=== PATIENT | male | born 1950 | race Caucasian/White ===

== ENCOUNTER 2019-06-25 10:03 | Outpatient (CLI) | payer MEDICARE, OTHER, SELFPAY ==
--- NOTE | 2019-06-25 10:16 | MM_ITS ---
WS: [id number] DIAGNOSTIC BILATERAL DIGITAL MAMMOGRAM WITH CAD RIGHT breast ultrasound, limited HISTORY: RT BREAST Pain; mastodynia COMPARISON: None available. TECHNIQUE: Bilateral craniocaudad, mediolateral oblique, and mediolateral views are submitted. Spot c ompression RIGHT MLO. Computer aided detection utilized. Breast composition: The breasts are almost entirely fatty. Prior markers are placed in the area of pa in. One marker is placed just lateral to the nipple an additional marker is placed towards the 10:00 axis. At the 10:00 axis is a very superficial. Nodule measuring 10 mm. No abnormality at the nipple. Ultrasound to follow. RIGHT breast ultrasound, limited. There is a very vague, nonspecific hypoechoic nodule measuring 9 x 7 mm near the areola. This is near ly isoechoic to the remaining breast parenchyma with no shadowing. There is a very vague isoechoic a hector superficially measuring 9 mm which may represent the same thing seen on mammography but cannot co nfirm. MM/[place] [id number] IMPRESSION: BI-RADS: 3-Probably Benign FOLLOW UP: 3 Month Follow-up There are 2 very vague areas of abnormality within the RIGHT breast. As these a re very poorly defined and nearly isodense with the remaining breast parenchyma consider follow-up 3 months. RIGHT mammogram and ultrasound recommended. If th cullen areas become more painful or enlarged significantly before 3 months conside r more urgent evaluation.
== END 2019-06-25 10:04 | disposition home or self-care (01) ==
LOC: RADSHAW 10:08
PROVIDERS: Family Provider Internal Medicine; PCP Family Medicine; Visit Provider Nurse Practitioner Family
DX: N64.4 Mastodynia (principal); N63.41 Unspecified lump in right breast, subareolar
CPT/HCPCS: 76642; 77065

== ENCOUNTER 2019-09-16 20:00 | Outpatient (CLI) | payer OTHER, MEDICARE, SELFPAY | END 2019-09-17 06:00 | disposition home or self-care (01) | LOC: SLEEP 09-26 12:23 | PROVIDERS: Family Provider Internal Medicine; PCP Family Medicine; Visit Provider Internal Medicine | DX: G47.33 Obstructive sleep apnea (adult) (pediatric) | CPT/HCPCS: 95811 ==

== ENCOUNTER 2019-10-23 10:08 | Outpatient (CLI) | payer MEDICARE, OTHER, SELFPAY ==
--- NOTE | 2019-10-23 10:17 | MM_ITS ---
WS: [id number] DIAGNOSTIC RIGHT DIGITAL MAMMOGRAM WITH CAD RIGHT breast ultrasound, limited HISTORY: ABNORMAL/INCONCLUSIVE FINDINGS ON diagnostic IMAGING OF BREAST 6 month follow-up. COMPARISON: 06/25/2019 Technique: CC, MLO and ML views. Spot compression RIGHT MLO and cc. Breast composition: The breasts are almost entirely fatty. Triangular markers are placed over the la teral RIGHT breast in the area of concern. There is no abnormality noted at the site of the more ante rior marker which is close to the nipple. There is a hypodense mass which is slightly more anterior t tinsley the palpable marker which has been placed. This nodule measures 10 mm and unchanged in appearanc e. Both of these areas will be evaluated by ultrasound. There are no new lesions. RIGHT breast ultrasound. At 9:00 1 cm from the nipple no abnormality is identified. At 10:00, 4 cm from the nipple is a hyperechoic mass measuring 11 x 6 x 7 mm. Similar in appearance t o the prior study. Benign in appearance. MM/[place] [id number] IMPRESSION: BI-RADS: 2-Benign FOLLOW UP: See Report The palpable nodules in the lateral RIGHT breast have not increased in size and appear benign by imaging. No additional imaging workup is necessary. Clinicall y if these are concerning for the increase in size surgical removal should be c onsidered.
--- NOTE | 2019-10-23 11:18 | US_ITS ---
WS: [id number] DIAGNOSTIC RIGHT DIGITAL MAMMOGRAM WITH CAD RIGHT breast ultrasound, limited HISTORY: ABNORMAL/INCONCLUSIVE FINDINGS ON diagnostic IMAGING OF BREAST 6 month follow-up. COMPARISON: 06/25/2019 Technique: CC, MLO and ML views. Spot compression RIGHT MLO and cc. Breast composition: The breasts are almost entirely fatty. Triangular markers are placed over the la teral RIGHT breast in the area of concern. There is no abnormality noted at the site of the more ante rior marker which is close to the nipple. There is a hypodense mass which is slightly more anterior t tinsley the palpable marker which has been placed. This nodule measures 10 mm and unchanged in appearanc e. Both of these areas will be evaluated by ultrasound. There are no new lesions. RIGHT breast ultrasound. At 9:00 1 cm from the nipple no abnormality is identified. At 10:00, 4 cm from the nipple is a hyperechoic mass measuring 11 x 6 x 7 mm. Similar in appearance t o the prior study. Benign in appearance. US/US breast RT limited* [id number] IMPRESSION: BI-RADS: 2-Benign FOLLOW UP: See Report The palpable nodules in the lateral RIGHT breast have not increased in size and appear benign by imaging. No additional imaging workup is necessary. Clinicall y if these are concerning for the increase in size surgical removal should be c onsidered.
== END 2019-10-23 10:09 | disposition home or self-care (01) ==
LOC: RADSHAW 10:16
PROVIDERS: PCP Family Medicine; Visit Provider Nurse Practitioner Family
DX: R92.8 Other abnormal and inconclusive findings on diagnostic imaging of breast (principal); N63.10 Unspecified lump in the right breast, unspecified quadrant
CPT/HCPCS: 76642; 77065

== ENCOUNTER → 2020-01-22 13:00 | Outpatient (BNVA) | payer MEDICARE, OTHER, SELFPAY | PROVIDERS: PCP Family Medicine; Visit Provider Urology | DX: N40.0 Benign prostatic hyperplasia without lower urinary tract symptoms (principal) | CPT/HCPCS: 81001 ==

== ENCOUNTER 2021-02-08 10:07 | Outpatient (CLI) | payer OTHER, SELFPAY ==
--- NOTE | 2021-02-08 10:42 | XR_ITS ---
WS: [id number] XR chest 2V* [id number] REASON FOR EXAM: SHORTNESS OF BREATH/FATIGUE FINDINGS: Mild tortuosity of the thoracic aorta. Normal heart size. Calcified granulomatous disease in both hemithoraces. No active pulmonary parenchymal or pleural dise ase. Degenerative spondylosis in the mid and lower thoracic spine with moderate disc space narrowing and o steophyte formation. Old healed right fourth and fifth rib fractures laterally. XR/XR chest 2V* [id number] IMPRESSION: No acute chest abnormality.
== END 2021-02-08 10:08 | disposition home or self-care (01) ==
PROVIDERS: PCP Family Medicine; Visit Provider Nurse Practitioner Family
DX: R06.02 Shortness of breath (principal); R53.83 Other fatigue
CPT/HCPCS: 71046

== ENCOUNTER 2021-03-11 06:12 | Outpatient (CLI) | payer MEDICARE, SELFPAY ==
--- NOTE | 2021-03-11 06:23 | CT_ITS ---
WS: [id number] CT CHEST TECHNIQUE: Noncontrast CT of the chest with coronal and sagittal reformatted images. CLINICAL INFORMATION: SOB COMPARISON: None. DLP: 1387.[address] scans at [facility] use at least one of these dose optimization techniques: automated e xposure control; mA and/or kV adjustment per patient size (includes targeted exams where dose is matc hed to clinical indication); or iterative reconstruction. FINDINGS: Mild chronic emphysematous changes. No acute pulmonary infiltrates. Slight bibasilar atelectasis. No focal consolidation or pleural fluid. No mediastinal or hilar lymphadenopathy. No axillary lymphadenopathy. 10 mm low-attenuation right thy roid nodule. Vascular calcification. Coronary calcification. Partially visualized adrenal glands appear normal. Hypertrophic changes thoracic spine. Mild thoracic kyphosis. Mild chronic appearing anterior wedging in the upper thoracic spine. CT/CT chest wo con [id number] IMPRESSION: 1. Mild chronic emphysematous changes. No acute pulmonary infiltrates. 2. Slight bibasilar atelectasis. 3. No mediastinal or hilar lymphadenopathy. 4. Mild vascular and coronary calcification. 5. 10 mm low-attenuation right thyroid nodule.
--- NOTE | 2021-03-11 06:53 | USCV_ITS ---
New Dela Cruz Age: 70 Gender: M : 1950 Exam Date: 03/11/2021 06:57 Ordering Phys: Maia Pereira NP Technologist: MINGO [place] [facility] [place]: SHORTNESS OF BREATH BP: 123 / 76 HR: 54 Rhythm: Sinus Technical Quality: Technically difficult study MEASUREMENTS (Male / Female) Normal Values 2D ECHO LV Diastolic Diameter PLAX 3.9 cm 4.2 - 5.9 / 3.9 - 5.3 cm LV Systolic Diameter PLAX 3.4 cm IVS Diastolic Thickness 1.5 cm 0.6 - 1.0 / 0.6 - 0.9 cm IVS Systolic Thickness 1.4 cm LVPW Diastolic Thickness 1.5 cm 0.6 - 1.0 / 0.6 - 0.9 cm LVPW Systolic Thickness 1.7 cm RV Chamber Size 2.9 cm LVOT Diameter 2.0 cm LV Ejection Fraction 2D Teich 4.2 % LV Ejection Fraction MOD 2C 55.7 % LV Ejection Fraction 2C AL 55.2 % LA Diameter 3.3 cm LA Width 3.3 cm LA Height 3.9 cm RA Width 3.2 cm RA Height 4.1 cm Aorta at Sinotubular Diameter 2.8 cm DOPPLER MV Area PHT 3.7 cm squared Mitral E to A Ratio 0.8 MV E' Velocity 33.5 cm/s Mitral E to MV E' Ratio 7.4 Mitral E to LV E' Lateral Ratio 7.0 Mitral E to LV E' Septal Ratio 7.9 TR Peak Velocity 283.0 cm/s TR Peak Gradient 32.0 mmHg TV Peak E Velocity 47.0 cm/s Right Atrial Pressure 3.0 mmHg Pulmonary Artery Systolic Pressu 35.0 mmHg PV Peak Velocity 74.0 cm/s RV Acceleration Time 0.1 s RV Ejection Time 0.4 s RV AcT/ET 0.3 FINDINGS Left Ventricle Normal left ventricular size. LV systolic function is normal with EF of 55-60%. No regional wall motion abnormalities. Grade 1 diastolic dysfunction Right Ventricle The right ventricle is normal in size and function. Right Atrium The right atrium is normal in size. Left Atrium The left atrium is normal in size. Mitral Valve Structurally normal mitral valve without significant stenosis or prolapse. There is trace mitral regurgitation. Aortic Valve Structurally normal aortic valve without significant sclerosis or stenosis. There is no aortic regurgitation. Tricuspid Valve Structurally normal tricuspid valve without significant stenosis or regurgitation. Insufficient TR jet to calculate RVSP Pulmonic Valve Structurally normal pulmonic valve without significant stenosis. There is no pulmonic regurgitation. Pericardium Normal pericardium without effusion. Aorta Normal ascending aorta dimension. CONCLUSIONS LV systolic function is normal with EF of 55-60% Grade 1 diastolic dysfunction Trace mitral regurgitation No comparison studies are available Storm Eddy MD (Electronically Signed) Final Date: 11 March 2021 14:47 S
== END 2021-03-11 06:13 | disposition home or self-care (01) ==
LOC: RAD 06:16
PROVIDERS: PCP Family Medicine; Visit Provider Nurse Practitioner Family
DX: R53.83 Other fatigue (principal); R06.02 Shortness of breath; I34.0 Nonrheumatic mitral (valve) insufficiency
CPT/HCPCS: 71250; 93306

== ENCOUNTER 2021-06-01 10:07 | Outpatient (CLI) | payer OTHER, SELFPAY ==
[2021-06-01 10:34] VITALS: BMI 33.7
--- NOTE | 2021-06-01 10:35 | ECG_ITS ---
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 Interpretive Statements NAME OF STUDY: EXERCISE SESTAMIBI STRESS TEST INDICATION: Dyspnea on Exertion Baseline blood pressure of 175/103 mm Hg, heart rate 64 beats per minute and oxygen saturation of 97%. EKG showed normal sinus rhythm, normal axis with normal ST-Ts. The patient exercised for 5 minutes 30 seconds on a standard [place] protocol. Patient attained a maximum heart rate of 139 beats per minute(93% of the maximum predicted heart rate) with a blood pressure at the peak exercise of 149/90 mm Hg and oxygen saturation 97%. The EKG at the peak exercise revealed sinus tachycardia with no significant ST-T wave changes. Patient did not have any chest pain or any significant arrhythmis with the exercise. Patient developed intraprocedural shortness of breath that resolved by discharge. During the recovery phase, there were no new changes. Blood pressure at the end of the recovery phase was 158/87 mm Hg with a heart rate of 87 beats per minute and oxygen saturation 97%. CONCLUSION: 1. Normal EKG response to treadmill exercise. 2. No exercise-induced chest pain or cardiac arrhythmia. 3. Patient exercised for 5 minutes 30 seconds. Good exercise tolerance for age, attained a maximum of 7 METs. Maximum VO2 of 24.5 mL/kg/min. 4. Baseline hypertension with (?) decreased blood pressure with exercise. 5. Perfusion scan will be documented separately. Electronically Signed On 06-02-2021 13:29:42 HOSPITAL ORDERLY by Ashley Tatum M.D. [id number]
--- NOTE | 2021-06-01 10:35 | NMCV_ITS ---
NM katlyn perf SPECT r/s* [id number] New Dela Cruz Age: 70 Gender: M : 1950 Exam Date: 06/01/2021 11:27 Ordering Phys: Ashley Tatum MD ([email or web address]) Technologist: JANET Powell Exam Location: [facility] Indications: PTSD STRESS TEST Please see separate stress test report in [facility] for full findings IMAGE PROTOCOL Rest/Stress 1 Exercise Day Radiopharmaceutical Dose (mCi) Administration Site Administered by Rest: Tc-99m 10.9 IV JANET Baez Sestamibi Stress:Tc-99m 32.7 IV JANET Powell Sestamihalima Rest: 01-Jun-2021 60 Discovery 630 Stress: 01-Jun-2021 30 Discovery 630 Radiopharmaceutical was injected at 85 % maximum heart rate. Images obtained in supine and prone position. SPECT RESULTS Technical Quality: Excellent Raw Data Analysis: Normal Image Corrections: No attenuation or motion correction applied Summed Stress Score: 1 Summed Rest Score: 0 Summed Difference Score: 1 PERFUSION FINDINGS Small sized perfusion abnormality of mild severity of apical lateral wall on supine stress images. FUNCTIONAL RESULTS (calculated via Gated SPECT) Stress Image LV EF (%): 68 Stress EDV (mL):93 TID: 0.71 Stress ESV (mL):30 FUNCTIONAL FINDINGS: The left ventricle is normal in size. Transient Ischemia Dilatation of 0.71. There is normal left ventricular systolic function. The left ventricular ejection fraction is normal with a value of 68%. There is normal left ventricular wall thickening. Normal end diastolic and end systolic volumes. IMPRESSIONS 1. Small sized perfusion abnormality of mild severity of apical lateral wall on stress images. 2. This likely represents attenuation artifact. However, small area of ischemia in circumflex artery territory cannot be completely ruled out. 3. Overall left ventricular systolic function is normal without regional wall motion abnormalities. LVEF=68% 4. EKG portion of the study will be reported separately. 5. Scan indicates low risk for cardiac events. Ashley Tatum MD (Electronically Signed) Final Date: 05 June 2021 13:28 S
[2021-06-01 12:40] VITALS: BP 170/90; PULSE 83
== END 2021-06-01 10:08 | disposition home or self-care (01) ==
LOC: RAD 10:12 → CDL 10:13
PROVIDERS: PCP Nurse Practitioner Family; Visit Provider Internal Medicine Cardiovascular Disease
DX: R06.09 Other forms of dyspnea (principal); I10 Essential (primary) hypertension
CPT/HCPCS: 78452; 93017; A9500

== ENCOUNTER 2021-06-09 07:16 | Outpatient (CLI) | payer OTHER, SELFPAY ==
--- NOTE | 2021-06-09 07:27 | USCV_ITS ---
New Dela Cruz Age: 70 Gender: M : 1950 Exam Date: 06/09/2021 08:31 Ordering Phys: Magaly Pichardo MD Technologist: JESSICA Exam Location: [facility] [place] Indication: dizziness Risk Factors: Previous Vascular Surgery: Right Brachial BP: / Left Brachial BP: / Right Left Velocity (cm/s) Spectral Plaque Velocity (cm/s) Spectral Plaque Syst/Diast Broadening Syst/Diast Broadening 91.70/ 19.40 Prox CCA 84.70 / 14.20 87.80/ 21.80 Mid CCA 115.70/ 27.60 80.80/ 24.10 Distal CCA 103.90/ 34.20 82.40/ 28.70 Prox ICA 75.90 / 23.00 106.00/33.50 Mid ICA 89.20 / 30.70 71.30/ 28.40 Distal ICA 87.40 / 31.60 97.10 ECA 140.70 1.21 ICA/CCA 0.77 Antegrade Vertebral Antegrade 42.20/ 15.00 cm/s 47.70/ 15.70 cm/s Tri Subclavian Tri 70.30 70.30 CONCLUSIONS Right ICA stenosis <50%. Mild atheromatous plaque right carotid bulb/ICA. Left ICA stenosis <50%. Mild atheromatous plaque left carotid bulb/ICA. Normal antegrade Doppler flow noted in the right vertebral artery. Normal antegrade Doppler flow noted in the left vertebral artery. Jorge Charles MD (Electronically Signed) Final Date: 10 June 2021 09:51 S
--- NOTE | 2021-06-09 07:27 | US_ITS ---
WS: [id number] THYROID ULTRASOUND (TI-RADS CRITERIA) History: Thyroid nodule. Technique: Ultrasound examination of the thyroid and adjacent soft tissues is performed. FINDINGS: Right lobe: 4.9 cm x 1.6 cm x 1.9 cm. Volume: 7.7 cm3. Normal size thyroid. Mild heterogeneity. Lymph nodes: None. There is a very hypoechoic nodule medial to the RIGHT submandibular gland measurin g 1.7 x 1.2 x 1.5 cm. No increased vascularity. This may be a cyst. There is some through transmissio n. There are also low level echoes throughout. This is not part of the thyroid. NODULE: 1 Size: 1.3 x 0.9 x 1.5 cm Location: Mid gland Composition: Solid/almost completely solid (2) Echogenicity: Hyperechoic (1) Shape: Not taller than wide (0) Margins: Smooth (0) Echogenic foci: None (0) ACR TI-RADS total points: 3 Nodule in the mid gland as described above is very hypervascular. There is an additional smaller, sim ilar nodule in the superior pole of the RIGHT thyroid with a maximum diameter of 0.6 cm. Left lobe: 4.0 cm x 1.4 cm x 1.1 cm. Volume: 3.2 cm3. Normal size gland. There is a coarse calcification in the mid gland measuring 0.3 x 0.1 x 0.3 cm. Lymph nodes: No enlarged or suspicious lymph nodes. Isthmus: 0.5 cm. US/US thyroid [id number] Impression: TR3 Recommendation:Follow-up thyroid ultrasound in one, 3 and 5 years to document l baylee-term stability of the indeterminate nodule in the RIGHT thyroid. Very hypoechoic nodule lateral to the RIGHT submandibular gland may be an abnor mal lymph node. Recommend follow-up neck CT with IV contrast for further evalua tion.
== END 2021-06-09 07:17 | disposition home or self-care (01) ==
LOC: RAD 07:19
PROVIDERS: PCP Nurse Practitioner Family; Visit Provider Family Medicine
DX: R42 Dizziness and giddiness (principal); E04.1 Nontoxic single thyroid nodule; I65.23 Occlusion and stenosis of bilateral carotid arteries
CPT/HCPCS: 76536; 93880

== ENCOUNTER → 2021-07-15 10:40 | Outpatient (BNVA) | payer OTHER, SELFPAY | PROVIDERS: PCP Nurse Practitioner Family; Visit Provider Internal Medicine Cardiovascular Disease | DX: R06.00 Dyspnea, unspecified (principal); I10 Essential (primary) hypertension; E78.5 Hyperlipidemia, unspecified; G47.30 Sleep apnea, unspecified; N52.9 Male erectile dysfunction, unspecified | CPT/HCPCS: 99214 ==

== ENCOUNTER → 2021-07-22 10:33 | Outpatient (BNVA) | payer OTHER, SELFPAY | PROVIDERS: PCP Nurse Practitioner Family; Visit Provider Urology | DX: N40.1 Benign prostatic hyperplasia with lower urinary tract symptoms (principal); N13.8 Other obstructive and reflux uropathy; Z12.5 Encounter for screening for malignant neoplasm of prostate; Z80.42 Family history of malignant neoplasm of prostate; N52.9 Male erectile dysfunction, unspecified | CPT/HCPCS: 81003; G0103 ==

== ENCOUNTER 2021-07-26 10:21 | Outpatient (CLI) | payer OTHER, SELFPAY ==
--- NOTE | 2021-07-26 10:46 | CT_ITS ---
WS: [id number] CT NECK TECHNIQUE: Contrast-enhanced CT of the neck with coronal and sagittal reformatted images. CLINICAL INFORMATION: FOLLOW UP TO ABNORMAL US COMPARISON: Ultrasound June 09, 2021 DLP: 461.[address] scans at [facility] use at least one of these dose optimization techniques: automated e xposure control; mA and/or kV adjustment per patient size (includes targeted exams where dose is matc hed to clinical indication); or iterative reconstruction. FINDINGS: Submandibular glands are normal in appearance. Parotid glands are normal in appearance. There is a sm all hypoechoic peripherally enhancing lesion along the undersurface RIGHT hyoid bone and anterior str ap muscles corresponding to the ultrasound findings compatible with a thyroglossal duct cyst measurin g 1.0 x 2.3 x 1.3 cm AP by transverse by craniocaudal. This is just anterior to the RIGHT thyroid car tilage. Normal parapharyngeal fat. Normal posterior nasopharynx. Mucosal thickening with secretions in the ma xillary sinuses compatible with sinusitis. Small RIGHT thyroid nodule better seen on the recent ultra sound. No evidence of supraglottic or glottic mass. Normal subglottic airway. No cervical lymphadenopathy. L elijah apices are well aerated. Moderate spondylitic changes cervical spine. CT/CT neck w con* [id number] IMPRESSION: 1. 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 RIGHT greater than LEFT maxillary sinusitis. 3. No other acute findings.
[2021-07-26 11:37] LABS: Blood Urea Nitrogen 23 mg/dL (8-23)
== END 2021-07-26 10:22 | disposition home or self-care (01) ==
LOC: RAD 10:22
PROVIDERS: PCP Nurse Practitioner Family; Visit Provider Family Medicine
DX: R93.0 Abnormal findings on diagnostic imaging of skull and head, not elsewhere classified (principal); J32.0 Chronic maxillary sinusitis
CPT/HCPCS: 70491; 82565; 84520

== ENCOUNTER → 2021-09-13 10:27 | Outpatient (BNVA) | payer OTHER, SELFPAY | PROVIDERS: PCP Nurse Practitioner Family; Visit Provider Otolaryngology | DX: J30.0 Vasomotor rhinitis (principal); Q89.2 Congenital malformations of other endocrine glands | CPT/HCPCS: 99204 ==

== ENCOUNTER → 2021-10-15 09:10 | Outpatient (BNVA) | payer OTHER, SELFPAY | PROVIDERS: PCP Nurse Practitioner Family; Visit Provider Otolaryngology | DX: J30.0 Vasomotor rhinitis (principal) | CPT/HCPCS: 99213 ==

== ENCOUNTER 2022-05-25 08:56 | Outpatient (CLI) | payer OTHER, SELFPAY ==
--- NOTE | 2022-05-25 | USCV_ITS ---
New Dela Cruz Age: 71 Gender: M : 1950 Exam Date: 05/25/2022 09:20 Ordering Phys: Magaly Pichardo MD Technologist: MARY Exam [place] [facility] [place] Indication: AAA SCREENING HISTORY: Diameter (cm) AP x Transverse x Length Velocity (cm/s) Waveform Prox Aorta: 2.21 x 2.38 x 90.90 Triphasic Mid Aorta: 2.07 x 1.96 x 104.10 Triphasic Distal Aorta: 1.95 x 1.61 x 72.70 Triphasic Right Iliac Prox: 1.16 x 1.12 x 138.00 Triphasic Left Iliac Prox: 1.27 x 0.97 x 96.70 Triphasic Stent Prox Landing x x Aneurysmal Sac Max x x Lt Lat Sac Dim Rt Lat Sac Dim Stent Dist Landing x x Right Iliac Stent x x Left Iliac Stent x x Right Renal Art Left Renal Art FINDINGS: CONCLUSIONS No evidence of abdominal aortic or bilateral iliac aneurysm. Jorge Charles MD (Electronically Signed) Final Date: 25 May 2022 10:43 S
--- NOTE | 2022-05-25 | US_ITS ---
WS: [id number] ULTRASOUND THYROID TECHNIQUE: Ultrasound of the thyroid. CLINICAL INFORMATION: NODULES COMPARISON: 06/09/21 FINDINGS: NODULE: 1 Size: 1.2 x 0.9 x 1.5 cm Location: Mid RIGHT thyroid gland Composition: Solid/almost completely solid (2) Echogenicity: Hyperechoic (1) Shape: Not taller than wide (0) Margins: Smooth (0) Echogenic foci: None (0) ACR TI-RADS total points: 3 Right thyroid lobe: 4.8 cm x 1.5 cm x 1.8 cm Stable solid hyperechoic well-circumscribed nodule in the mid RIGHT thyroid. Associated increased vas cularity is stable. No other visualized nodules today. Left thyroid lobe: 3.9 cm x 1.3 cm x 1.2 cm. Stable coarse calcification in the mid thyroid measuring 3 mm. Isthmus: 0.3 mm. Cervical lymphadenopathy: None. US/US thyroid [id number] IMPRESSION: TR3 Recommendation: Follow-up thyroid ultrasound in one, 3 and 5 years to document long-term stabil ity of the indeterminate nodule in the RIGHT thyroid. Next scheduled interval f ollow-up is 3 years.
== END 2022-05-25 08:57 | disposition home or self-care (01) ==
LOC: RAD 08:57
PROVIDERS: PCP Nurse Practitioner Family; Visit Provider Family Medicine
DX: Z13.6 Encounter for screening for cardiovascular disorders (principal); E04.2 Nontoxic multinodular goiter
CPT/HCPCS: 76536; 76706; 99214

== ENCOUNTER → 2022-11-09 08:48 | Outpatient (BNVA) | payer OTHER, SELFPAY | PROVIDERS: PCP Nurse Practitioner Family; Visit Provider Nurse Practitioner Family | DX: L57.0 Actinic keratosis (principal); L30.0 Nummular dermatitis; L57.8 Other skin changes due to chronic exposure to nonionizing radiation; D69.2 Other nonthrombocytopenic purpura; L81.4 Other melanin hyperpigmentation; D22.5 Melanocytic nevi of trunk; L85.3 Xerosis cutis; S60.041A Contusion of right ring finger without damage to nail, initial encounter; S60.042A Contusion of left ring finger without damage to nail, initial encounter; X58.XXXA Exposure to other specified factors, initial encounter; Z71.89 Other specified counseling | CPT/HCPCS: 17004; 99213 ==

== ENCOUNTER → 2023-02-09 08:16 | Outpatient (BNVA) | payer OTHER, SELFPAY | PROVIDERS: PCP Nurse Practitioner Family; Visit Provider Nurse Practitioner Family | DX: L57.0 Actinic keratosis (principal); L57.8 Other skin changes due to chronic exposure to nonionizing radiation; D69.2 Other nonthrombocytopenic purpura; L81.4 Other melanin hyperpigmentation; D22.5 Melanocytic nevi of trunk; L85.3 Xerosis cutis; L82.1 Other seborrheic keratosis | CPT/HCPCS: 17000; 99213 ==

== ENCOUNTER → 2023-04-03 10:39 | Outpatient (BNVA) | payer OTHER, SELFPAY | PROVIDERS: PCP Nurse Practitioner Family; Visit Provider Internal Medicine Cardiovascular Disease | DX: R06.00 Dyspnea, unspecified (principal); I10 Essential (primary) hypertension | CPT/HCPCS: 99214 ==

== ENCOUNTER → 2023-06-13 08:23 | Outpatient (BNVA) | payer OTHER, SELFPAY | PROVIDERS: PCP Nurse Practitioner Family; Visit Provider Nurse Practitioner Family | DX: D48.5 Neoplasm of uncertain behavior of skin (principal); L57.0 Actinic keratosis; L82.0 Inflamed seborrheic keratosis; L57.8 Other skin changes due to chronic exposure to nonionizing radiation; D22.4 Melanocytic nevi of scalp and neck; L81.4 Other melanin hyperpigmentation | CPT/HCPCS: 11102; 17000; 17110; 99213 ==

== ENCOUNTER 2023-11-13 09:45 | Inpatient (IN) | payer OTHER, SELFPAY ==
[2023-11-13] VITALS (169 sets, daily range): BP systolic 96–189; BP diastolic 46–102; PULSE 57–97; RESP 12–35; TEMP 36.7–39.4; O2SAT 83–100; BMI 34.2
--- NOTE | 2023-11-13 09:51 | XRR_ITS ---
PROCEDURE INFORMATION: Exam: XR Chest Exam date and time: 11/13/2023 10:07 AM Age: 73 years old Clinical indication: Cough and dyspnea; Additional info: Dyspnea/cough TECHNIQUE: Imaging protocol: Radiologic exam of the chest. Views: 1 view. COMPARISON: CR XR chest 2V* [id number] 02/08/2021 11:17 AM FINDINGS: Lungs: Heterogeneous basal right lower lobe opacification. Mild left basilar linear atelectasis versus scarring. Pleural spaces: No substantial pleural effusion or pneumothorax. Heart/Mediastinum: Unremarkable. No cardiomegaly. Vasculature: Aortic arch atherosclerotic calcification. Bones/joints: Right 5th rib chronic fracture deformity. Degenerative changes along the spine. XR/XR chest 1V portable [id number] IMPRESSION: Heterogeneous right lower lobe opacification may represent atelectasis, pneumonia or aspiration.
--- NOTE | 2023-11-13 09:53 | ED_ITS ---
HPI - Weakness 2 General: Chief complaint: ER Hold Stated complaint: possible sepsis Time Seen by Provider: 11/13/23 09:46 Source: patient Mode of arrival: ambulatory History of Present Illness: 73-year-old male [facility] with generalized weakness diaphoresis. He is also noticed decreased urine output. This has been going on for the last about 3 days. He denies chest pain or abdominal pain. He is not particularly short of breath he just generally feels very weak. He denies any cough. With a little bit of urine he has had has not had any dysuria urgency or frequency. He does have a history of BPH. MD Complaint: generalized weakness Onset (ago): day(s) Relieving factors: none Context: new medication Associated symptoms: Reports decreased appetite and myalgias; Denies chest pain, chills, confusion, melena, diaphoresis, dysuria, easy bruising, fever(s), headache(s), nausea, rash, short of breath, syncope or vomiting Review of Systems 2 Const: Reports: fatigue and malaise; Denies: fever(s), chills or diaphoresis Card: Denies: chest pain, palpitations or syncope Resp: Denies: dyspnea GI: Denies: abdominal pain, nausea, vomiting or melena : Reports: oliguria; Denies: dysuria, urinary frequency or urinary urgency Musc: Denies: neck pain or back pain Skin/Breast: Denies: rash Neuro: Denies: headache(s) or confusion Godfrey/Lymph: Denies: easy bruising PFSH ED 2 PFSH: Medical History Insomnia Nummular eczema Seborrheic dermatitis Hyperlipidemia Hypertension Hypothyroidism PTSD (post-traumatic stress disorder) Sleep apnea Family history of prostate cancer Erectile dysfunction BPH with obstruction/lower urinary tract symptoms Peyronie's disease Surgical History History of right hip replacement Family History Father , at age 85 Cancer PROSTATE CANCER Mother No problems noted. 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 Physical Exam 2 Const: GENERAL APPEARANCE: cooperative and comfortable O RIENTATION/CONSCIOUSNESS: Yes awake, Yes oriented to person, Yes oriented to place and Yes oriented to time HENMT: COMMON NORMALS: normocephalic, atraumatic and hearing grossly normal bilaterally HEAD & SCALP: normocephalic and atraumatic Resp: COMMON NORMALS: No retractions and No use of accessory muscles EFFORT & INSPECTION: Yes tachypneic AUSCULTATION: rhonchi right lower Cardio: COMMON NORMALS: regular rate, regular rhythm and No murmurs present (Cardio) RATE: regular rate RHYTHM: regular rhythm GI: COMMON NORMALS: Soft to palpation and No hepatosplenomegaly present A USCULTATION: Yes normoactive bowel sounds PALPATION: Yes Soft to palpation, No Tenderness to palpation present (GI), No Guarding due to palpation present (GI) and Yes No hepatosplenomegaly present Extremity: COMMON NORMALS: normal to inspection, capillary refill normal, no clubbing, cyanosis or edema, no calf tenderness and no pedal edema Neuro: SENSORIUM/ORIENTATION: Yes oriented to person, Yes oriented to place and Yes oriented to time Skin: COMMON NORMALS: no rashes or lesions noted GENERAL SKIN EXAM: no rashes or lesions noted Course 2 Vital Signs: Vital signs: Vital Signs Temperature 103 F H 11/13/23 16:24 Pulse Rate 97 11/13/23 16:35 Respiratory Rate 23 H 11/13/23 16:35 Blood Pressure 173/93 11/13/23 16:35 Pulse Oximetry 96 11/13/23 16:35 Oxygen Delivery Me thod Nasal Cannula 11/13/23 16:35 Oxygen Flow Rate 2 11/13/23 16:35 MDM - Weakness Medical Decision Making Tachypnea fever mild hypoxia right lower lobe pneumonia. Discussed with hospitalist will admit he also has some leukocytosis respiratory panel is pending also mild hyponatremia orders written Medical Records I reviewed the patient's medical records. Lab Data I reviewed the patient's lab results. 11/13/23 09:53 07/15/24 09:53 Radiology Impressions Chest X-Ray 11/13/23 09:51 IMPRESSION: Heterogeneous right lower lobe opacification may represent atelectasis, pneumonia or aspiration. Laboratory Results WBC 13.41 10^3/uL (3.29-11.43) H 11/13/23 09:53 RBC 4.54 10^6/uL (3.85-5.65) 11/13/23 09:53 Hgb 14.00 g/dL (11.27-16.99) 11/13/23 09:53 Hct 40.7 % (37-53) 11/13/23 09:53 MCV 89.6 fl (82-101) 11/13/23 09:53 MCH 30.8 pg (27-33) 11/13/23 09:53 MCHC 34.4 g/dL (30-55) 11/13/23 09:53 RDW 14.3 % (12.1-15.1) 11/13/23 09:53 Plt Count 200 10^3/cmm (157-399) 11/13/23 09:53 MPV 9.4 fL (7.4-10.4) 11/13/23 09:53 Neut % (Auto) 87.9 % 11/13/23 09:53 Lymph % (Auto) 4.2 % 11/13/23 09:53 Union % (Auto) 6.9 % 11/13/23 09:53 Eos % (Auto) 0.4 % 11/13/23 09:53 Baso % (Auto) 0.1 % 11/13/23 09:53 Neut # (Auto) 11.77 10^3/uL (1.8-7.7) H 11/13/23 09:53 Lymph # (Auto) 0.6 10^3/uL (0.8-4.8) L 11/13/23 09:53 Union # (Auto) 0.9 10^3/uL (0.2-0.9) 11/13/23 09:53 Eos # (Auto) 0.1 10^3/uL (0.0-0.8) 11/13/23 09:53 Baso # (Auto) 0.0 10^3/uL (0.0-0.1) 11/13/23 09:53 Nucleated RBC % (auto) 0 % 11/13/23 09:53 Nucleated RBCs # 0.0 /100WBC 11/13/23 09:53 Sodium 128 mmol/L (136-145) L 11/13/23 09:53 Potassium 4.4 mmol/L (3.5-5.1) 11/13/23 09:53 Chloride 93 mmol/L (98-107) L 11/13/23 09:53 Carbon Dioxide 21 mmol/L (22-29) L 11/13/23 09:53 Anion Gap 18.4 (5-19) 11/13/23 09:53 BUN 25 mg/dL (8-23) H 11/13/23 09:53 Creatinine 1.2 mg/dL (0.7-1.2) 11/13/23 09:53 GFR Calculation Not Reportable 11/13/23 09:53 Glucose 148 mg/dL (65-115) H 11/13/23 09:53 Calculated Osmolality 273 mOsm/kg (285-295) L 11/13/23 09:53 Lactic Acid 0.9 mmol/L (0.5-2.2) 11/13/23 09:53 Calcium 9.3 mg/dL (8.5-10.5) 11/13/23 09:53 Magnesium 1.8 mg/dL (1.7-2.3) 11/13/23 09:53 Total Bilirubin 0.5 mg/dL (0.15-1.2) 11/13/23 09:53 AST 20 U/L (0-40) 11/13/23 09:53 ALT 19 U/L (0-41) 11/13/23 09:53 Alkaline Phosphatase 61 U/L (40-130) 11/13/23 09:53 Creatine Kinase 80 U/L (39-308) 11/13/23 09:53 Troponin T 5th Gen ng/L 17 ng/L (0-15) H 11/13/23 14:55 NT-Pro-B Natriuret Pep 942 pg/mL (0-125) H 11/13/23 09:53 Total Protein 7.2 g/dL (6.6-8.7) 11/13/23 09:53 Albumin 4.0 g/dL (3.5-5.2) 11/13/23 09:53 Globulin 3.2 g/dL (1.3-4.6) 11/13/23 09:53 Lipase 31 U/L (13-60) 11/13/23 09:53 TSH 5.58 uIU/mL (0.27-4.20) H 11/13/23 09:53 Random Cortisol 22.85 ug/dL (2.47-19.5) H 11/13/23 09:53 Urine Color Yellow (Yellow) 11/13/23 13:55 Urine Appearance Clear (CLEAR) 11/13/23 13:55 Urine pH 6 (5-7) 11/13/23 13:55 Ur Specific [place] 1.005 (1.005-1.030) 11/13/23 13:55 Urine Protein Trace (Negative) 11/13/23 13:55 Urine Glucose (UA) Norm (Normal) 11/13/23 13:55 Urine Ketones Negative (Negative) 11/13/23 13:55 Urine Blood Neg (Negative) 11/13/23 13:55 Urine Nitrate Negative (Negative) 11/13/23 13:55 Urine Bilirubin Neg (Negative) 11/13/23 13:55 Urine Urobilinogen 1 mg/dL (Negative) H 11/13/23 13:55 Ur Leukocyte Esterase Negative (Negative) 11/13/23 13:55 Urine RBC None /hpf (0-2) 11/13/23 13:55 Urine WBC None /hpf (0-5) 11/13/23 13:55 Ur Squamous Epith Cells None /hpf (0-5) 11/13/23 13:55 Amorphous Sediment Not Reportable 11/13/23 13:55 Urine Bacteria None /hpf (NONE) 11/13/23 13:55 Hyaline Casts 5-10 /lpf H 11/13/23 13:55 Adenovirus (PCR) Not detected (NOT DETECT) 11/13/23 12:18 C. pneumoniae DNA (PCR) Not detected (NOT DETECT) 11/13/23 12:18 Coronavirus 229E (PCR) Not detected (NOT DETECT) 11/13/23 12:18 Human Metapneumovir PCR Not detected (NOT DETECT) 11/13/23 12:18 Influenza A (H1) PCR Not detected (NOT DETECT) 11/13/23 12:18 Influ A (H1/09) PCR Not detected (NOT DETECT) 11/13/23 12:18 Influenza A (H3) PCR Not detected (NOT DETECT) 11/13/23 12:18 Influenza Type A (PCR) Not detected (NOT DETECT) 11/13/23 12:18 Influenza Type B (PCR) Not detected (NOT DETECT) 11/13/23 12:18 M. pneumoniae (PCR) Not detected (NOT DETECT) 11/13/23 12:18 Parainfluenza 1 (PCR) Not detected (NOT DETECT) 11/13/23 12:18 Parainfluenza 2 (PCR) Not detected (NOT DETECT) 11/13/23 12:18 Parainfluenza 3 (PCR) Not detected (NOT DETECT) 11/13/23 12:18 Parainfluenza 4 (PCR) Not detected (NOT DETECT) 11/13/23 12:18 RSV Type A (PCR) Not detected (NOT DETECT) 11/13/23 12:18 RSV Type B (PCR) Not detected (NOT DETECT) 11/13/23 12:18 Entero/Rhino (PCR) Not detected (NOT DETECT) 11/13/23 12:18 SARS-CoV-2 (PCR) Not detected (NOT DETECT) 11/13/23 12:18 All radiology interpretation(s) finalized by discharge Discharge Plan Discharge Patient Disposition: Admitted As Inpatient Admit Provider: Khanh Capps Clinical Impression: Pneumonia, Hyponatremia Condition: Stable Coding Level of Care Code ED It Risk Advisor for Jonnathan Rodriguez
--- NOTE | 2023-11-13 09:53 | ECG_ITS ---
[facility] Test Date: 2023-11-13 Pat Name: New Dela Cruz Department: Room: Gender: Male Philosophy Faculty Member: : 1950 Requested By: Ever Mcdaniels Order Number: [id number] Emmy MD: Storm Eddy M.D. Measurements Intervals [place] Rate: 58 P: 63 [place]: 185 QRS: 2 QRSD: 99 T: 53 QT: 400 QTc: 395 Interpretive Statements SINUS BRADYCARDIA No previous ECG available for comparison Electronically Signed On 11-13-2023 10:05:30 CDT by Storm Eddy M.D. [id number]
[2023-11-13] MEDS: sodium chloride 0.9% 1,000 ML 999 ML IV (10:08)
[2023-11-13 10:16] LABS: Basophils % 0.1 %; Eosinophils # 0.1 10^3/uL (0.0-0.8); Eosinophils % 0.4 %; Hematocrit 40.7 % (37-53); Lymphocytes # 0.6 10^3/uL (0.8-4.8); Lymphocytes % 4.2 %; Mean Corpuscular HGB Conc 34.4 g/dL (30-55); Mean Corpuscular Hemoglobin 30.8 pg (27-33); Mean Corpuscular Volume 89.6 fl (82-101); Mean Platelet Volume 9.4 fL (7.4-10.4); Monocytes # 0.9 10^3/uL (0.2-0.9); Monocytes % 6.9 %; Neutrophils # 11.77 10^3/uL (1.8-7.7); Neutrophils % 87.9 %; Nucleated Red Blood Cells % 0 %; Platelet Count 200 10^3/cmm (157-399); Red Blood Count 4.54 10^6/uL (3.85-5.65); Red Cell Distribution Width 14.3 % (12.1-15.1); White Blood Count 13.41 10^3/uL (3.29-11.43)
[2023-11-13 10:32] LABS: Lactic Sepsis W/Reflex 0.9 mmol/L (0.5-2.2)
[2023-11-13 10:34] LABS: Alanine Aminotransferase 19 U/L (0-41); Alkaline Phosphatase 61 U/L (40-130); Anion Gap 18.4 (5-19); Aspartate Amino Transferase 20 U/L (0-40); Blood Urea Nitrogen 25 mg/dL (8-23); Calcium 9.3 mg/dL (8.5-10.5); Carbon Dioxide 21 mmol/L (22-29); Chloride 93 mmol/L (98-107); Creatine Phosphokinase 80 U/L (39-308); Creatinine Clr Calc Pharmacy 80.8922; Globulin 3.2 g/dL (1.3-4.6); Glucose 148 mg/dL (65-115); Lipase 31 U/L (13-60); Magnesium 1.8 mg/dL (1.7-2.3); Osmolality Calculated 273 mOsm/kg (285-295); Potassium 4.4 mmol/L (3.5-5.1); Sodium 128 mmol/L (136-145); Total Bilirubin 0.5 mg/dL (0.15-1.2); Total Protein 7.2 g/dL (6.6-8.7)
--- NOTE | 2023-11-13 11:35 | PC.PHAR ---
PT IS [facility]-PT HAS CURRENT MED LIST FROM [facility].
[2023-11-13] MEDS: cefTRIAXone 1,000 mg SDV 1000 MG IVP (11:51)
[2023-11-13] MEDS: azithromycin 500 MG in sodium chloride 0.9% 250 ML 250 MG IV (12:05)
--- NOTE | 2023-11-13 12:49 | PM.HP ---
Providers/Chief Complaint Admitting Physician: Khanh Capps MD Primary Care Provider: Maia Pereira NP Chief Complaint: possible sepsis History of Present Illness New Dela Cruz is a 73 year old male presenting from home feeling weak, having a nonproductive cough, sweating, decreased urine output. He reports he has also had a little bit of nausea but no vomiting. Symptoms have been going on for the last 2 to 3 days. He reports no orthopnea, chest discomfort, lower extremity swelling. He reports he continues to eat and drink. He denies any recent ill contacts. He denies history of coronary disease or CHF. He reports no history of aspiration. Has not really noticed any shortness of breath. Has never used tobacco. Denies any tick bites. Review of Systems General: Reports: 10 or more systems reviewed and unremarkable except in HPI and below Card: Denies: chest pain Resp: Reports: non-productive cough GI: Reports: nausea; Denies: abdominal pain, vomiting, hematochezia or melena Medications/Allergies Home Medications Medication Instructions Recorded Confirmed Last Taken Type aspirin 81 mg tablet,delayed 81 mg PO DAILY 01/22/20 11/13/23 11/13/23 History release levothyroxine 75 mcg capsule 75 mcg PO DAILY 01/22/20 11/13/23 11/13/23 History omeprazole 20 mg capsule,delayed 20 mg PO BID 07/22/21 11/13/23 11/13/23 History release sertraline 100 mg tablet 200 mg PO DAILY 07/22/21 11/13/23 11/13/23 History lisinopril 20 mg tablet 20 mg PO BID #180 tabs 09/10/21 11/13/23 11/13/23 Rx diclofenac potassium 50 mg tablet 50 mg PO BID 05/13/22 11/13/23 11/13/23 History amlodipine 5 mg tablet 5 mg PO BID #180 tabs 10/07/22 11/13/23 11/13/23 Rx chlorthalidone 25 mg tablet 25 mg PO DAILY #90 tabs 10/07/22 11/13/23 11/13/23 Rx coenzyme Q10 100 mg capsule 200 mg PO DAILY 11/13/23 11/13/23 11/13/23 History (CoQ-10) rosuvastatin 40 mg tablet 40 mg PO QPM 11/13/23 11/13/23 11/12/23 History Allergies Allergy/AdvReac Type Severity Reaction Status Date / Time [id number]-[id number] Reductase Allergy Unknown Unknown Verified 04/03/23 08:55 Inhibitor PFSH Acute PFSH: Medical History Insomnia Nummular eczema Seborrheic dermatitis Hyperlipidemia Hypertension Hypothyroidism PTSD (post-traumatic stress disorder) Sleep apnea Family history of prostate cancer Erectile dysfunction BPH with obstruction/lower urinary tract symptoms Peyronie's disease Surgical History History of right hip replacement Family History Father , at age 85 Cancer PROSTATE CANCER Mother No problems noted. 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 He coughs occasionally. HEENT: Atraumatic normocephalic. Oropharynx clear Neck supple no lymphadenopathy thyromegaly Cardiovascular regular rate and rhythm without murmur Lungs crackles right lower lobe. No wheezing. Left is clear. Abdomen is soft nontender obese. No tenderness. No hepatomegaly. exams deferred Extremities no cyanosis, or edema, cap refill brisk Skin no rash Neuro no focal deficits. Data 11/13/23 09:53 11/13/23 09:53 Other Labs: Blood cultures were obtained Chest x-ray which I reviewed demonstrates some atherosclerotic disease as well as a right lower lobe infiltrate EKG which I reviewed demonstrates normal sinus rhythm, borderline left axis, no acute changes. Previous echo in 03/21 demonstrated an EF of 55 to 60% and 1/4 diastolic dysfunction Sodium low at 128 LFTs normal BNP slightly high at 942 Respiratory panel pending I have ordered an echo Will order troponin Lactic acid was normal Micro: Microbiology 11/13/23 11:14 Blood Culture - Preliminary Blood SPECIMEN COLLECTED 11/13/23 11:11 Blood Culture - Preliminary Blood SPECIMEN COLLECTED A&P Assessment and plan (1) Pneumonia: Patient presents with concern of right lower lobe pneumonia Blood cultures have been obtained Obtain sputum culture, respiratory panel IV antibiotics consisting of Rocephin and azithromycin Wean oxygen as tolerated. If he makes significant improvement by tomorrow and is off oxygen he could potentially discharge home. (2) Hyponatremia: Patient's sodium slightly low BNP is elevated Potential of heart failure must be entertained considering right lower lobe infiltrate. Cannot completely rule out atypical edema. Check echocardiogram Check troponin on blood in lab and repeat now Lasix 20 mg IV. This should bring sodium up. Recheck tomorrow morning Check TSH Check random cortisol (3) Elevated brain natriuretic peptide (BNP) level: See above Plan Other medical problems as outlined in past medical history Full code Lovenox will suffice for DVT prophylaxis Attestations Medical Necessity Statement*: Will need less than 2 midnight stay for evaluation and treatment of pneumonia Diagnoses Pneumonia J18.9 Hyponatremia E87.1 Elevated brain natriuretic peptide (BNP) level R79.89 Time Spent (min) 53
[2023-11-13 13:06] LABS: NT Pro B Type Natriuretic Pept 942 pg/mL (0-125)
--- NOTE | 2023-11-13 13:32 | USCV_ITS ---
New Dela Cruz Age: 73 Gender: M : 1950 Exam Date: 11/13/2023 15:31 Ordering Phys: Khanh Capps MD Technologist: CT Exam Location: [facility] [place]_ Indication: BP: 140 / 80 HR: 72 Rhythm: Sinus Technical Quality: Adequate MEASUREMENTS (Male / Female) Normal Values 2D ECHO LVOT Diameter 2.1 cm LV Ejection Fraction MOD 4C 65.8 % LV Ejection Fraction MOD 2C 52.4 % LV Ejection Fraction 2C AL 54.9 % LA Diameter 3.6 cm RA Systolic Volume 4C AL 68.0 ml RA Systolic Volume 4C MOD 66.1 ml LA Sys Volume AL 76.6 cm cubed LA Sys Volume Index AL 28.5 cm cubed/m squared Aorta at Sinotubular Diameter 2.8 cm M-MODE LA Ao Ratio MM 1.6 AV Cusp Separation MM 2.0 cm DOPPLER AV Peak Velocity 150.0 cm/s LVOT Peak Velocity 123.0 cm/s AV Area Cont Eq vti 3.3 cm squared AV Area Cont Eq pk 2.8 cm squared MV Peak Velocity 107.0 cm/s MV Area PHT 3.6 cm squared Mitral E to A Ratio 1.2 TV Peak Velocity 141.5 cm/s TR Peak Velocity 163.0 cm/s TR Peak Gradient 10.6 mmHg TV Peak E Velocity 85.0 cm/s Right Atrial Pressure 3.0 mmHg Pulmonary Artery Systolic Pressu 13.6 mmHg PV Peak Velocity 110.5 cm/s FINDINGS Left Ventricle Normal left ventricular size and systolic function, EF 60% . No gross wall motion abnormalities noted. Right Ventricle The right ventricle is normal in size and function. Right Atrium The right atrium is normal in size. Left Atrium The left atrium is normal in size. Mitral Valve Trace mitral valve regurgitation. Aortic Valve Thickened aortic valve. Tricuspid Valve No gross abnormalities noted Pulmonic Valve Pulmonic valve not well visualized. Pericardium Normal pericardium without effusion. Aorta Normal ascending aorta dimension. IVC Inferior vena cava not visualized. CONCLUSIONS Normal left ventricular size and systolic function, EF 60% . No gross wall motion abnormalities noted. Trace mitral valve regurgitation. Thickened aortic valve. There is no pericardial effusion. There are no intracardiac masses. Compared to the study from 03/11/2021, there may not be a significant change Dr Tee Louis MD FACC (Electronically Signed) Final Date: 14 November 2023 07:30 S
[2023-11-13] MEDS: FUROsemide 10 mg/mL SDV 2mL 20 MG IVP (13:54)
[2023-11-13 14:00] LABS: Troponin T (5th) Once 23 ng/L (0-15)
[2023-11-13 14:06] LABS: Add Urine Microscopic? YES; Bilirubin Urine Neg (Negative); Blood Urine Neg (Negative); Glucose Urine UA Norm (Normal); Ketones Urine Negative (Negative); Leukocyte Esterase Urine Negative (Negative); Nitrate Urine Negative (Negative); Protein Urine Trace (Negative); Specific Gravity, Urine 1.005 (1.005-1.030); Urine Appearance Clear (CLEAR); Urine Color Yellow (Yellow); Urobilinogen Urine 1 mg/dL (Negative); pH Urine 6 (5-7)
[2023-11-13 14:08] LABS: Add Urine Culture? No
[2023-11-13 14:21] LABS: Adenovirus Not Detected (NOT DETECT); Chlamydia Pneumoniae Not Detected (NOT DETECT); Coronavirus 229E,HKU1,NL63,OC4 Not Detected (NOT DETECT); Human Metapneumovirus Not Detected (NOT DETECT); Human Rhinovirus/Enterovirus Not Detected (NOT DETECT); Influenza A Not Detected (NOT DETECT); Influenza A H1 Not Detected (NOT DETECT); Influenza A H1-2009 Not Detected (NOT DETECT); Influenza A H3 Not Detected (NOT DETECT); Influenza B Not Detected (NOT DETECT); Mycoplasma Pneumoniae Not Detected (NOT DETECT); Parainfluenza Virus Type 1 Not Detected (NOT DETECT); Parainfluenza Virus Type 2 Not Detected (NOT DETECT); Parainfluenza Virus Type 3 Not Detected (NOT DETECT); Parainfluenza Virus Type 4 Not Detected (NOT DETECT); Respiratory Syncytial Virus A Not Detected (NOT DETECT); Respiratory Syncytial Virus B Not Detected (NOT DETECT); SARS-COV-2 Not Detected (NOT DETECT)
[2023-11-13 14:37] LABS: Cortisol Random 22.85 ug/dL (2.47-19.5); Thyroid Stimulating Hormone 5.58 uIU/mL (0.27-4.20)
[2023-11-13 15:30] LABS: Troponin T (5th) Once 17 ng/L (0-15)
[2023-11-13] MEDS: acetaminophen 325 mg Tablet 650 MG PO (16:30)
[2023-11-13] MEDS: ondansetron 2 mg/ML SDV 2 mL 4 MG IVP (18:05)
[2023-11-13] MEDS: enoxaparin 40 mg/0.4 mL Syringe SUBCUT (18:06)
[2023-11-13] MEDS: atorvastatin 40 mg Tablet PO (18:37)
[2023-11-13] MEDS: pantoprazole DR 40 mg Tablet PO (18:37)
[2023-11-13] MEDS: lisinopril 20 mg Tablet PO (18:39)
[2023-11-13] MEDS: amlodipine 5 mg Tablet PO (18:39)
[2023-11-14] VITALS (82 sets, daily range): BP systolic 104–180; BP diastolic 46–81; PULSE 60–89; RESP 7–32; TEMP 36.4–37.1; O2SAT 92–99
[2023-11-14 04:35] LABS: Basophils % 0.2 %; Eosinophils % 0.3 %; Hematocrit 36.6 % (37-53); Lymphocytes # 0.7 10^3/uL (0.8-4.8); Lymphocytes % 6.6 %; Mean Corpuscular HGB Conc 34.2 g/dL (30-55); Mean Corpuscular Hemoglobin 30.3 pg (27-33); Mean Corpuscular Volume 88.6 fl (82-101); Mean Platelet Volume 9.2 fL (7.4-10.4); Monocytes # 0.9 10^3/uL (0.2-0.9); Monocytes % 9.4 %; Neutrophils # 8.25 10^3/uL (1.8-7.7); Neutrophils % 83.1 %; Nucleated Red Blood Cells % 0 %; Platelet Count 187 10^3/cmm (157-399); Red Blood Count 4.13 10^6/uL (3.85-5.65); Red Cell Distribution Width 14.2 % (12.1-15.1); White Blood Count 9.92 10^3/uL (3.29-11.43)
[2023-11-14 04:52] LABS: Alanine Aminotransferase 18 U/L (0-41); Albumin Level 3.3 g/dL (3.5-5.2); Alkaline Phosphatase 53 U/L (40-130); Anion Gap 16.3 (5-19); Aspartate Amino Transferase 22 U/L (0-40); Blood Urea Nitrogen 24 mg/dL (8-23); Calcium 8.6 mg/dL (8.5-10.5); Carbon Dioxide 23 mmol/L (22-29); Chloride 98 mmol/L (98-107); Creatinine Clr Calc Pharmacy 97.0706; Globulin 2.9 g/dL (1.3-4.6); Glucose 131 mg/dL (65-115); Magnesium 1.8 mg/dL (1.7-2.3); Osmolality Calculated 282 mOsm/kg (285-295); Potassium 4.3 mmol/L (3.5-5.1); Sodium 133 mmol/L (136-145); Total Bilirubin 0.4 mg/dL (0.15-1.2); Total Protein 6.2 g/dL (6.6-8.7)
[2023-11-14] MEDS: levothyroxine 75 mcg Tablet PO (09:17)
[2023-11-14] MEDS: sertraline 100 mg Tablet 200 MG PO (09:18)
[2023-11-14] MEDS: amlodipine 5 mg Tablet PO ×2 (09:18→17:17)
[2023-11-14] MEDS: aspirin 81 mg EC Tablet PO (09:18)
[2023-11-14] MEDS: lisinopril 20 mg Tablet PO ×2 (09:18→17:18)
[2023-11-14] MEDS: pantoprazole DR 40 mg Tablet PO ×2 (09:18→17:17)
--- NOTE | 2023-11-14 09:26 | P.PN_ITS ---
Subjective 2 Subjective: New reports he feels pretty weak. He ran fevers last night. He is now requiring 2 L of oxygen pretty continuously. Tmax 103.0 ?F. No chest pain. Medications: Reviewed: Yes Vitals/I&O/Wt Last Vital Signs Temp 101.2 F H 11/13/23 18:14 Pulse 66 11/14/23 07:19 Resp 19 H 11/14/23 07:19 BP 144/70 11/14/23 07:19 Pulse Ox 96 11/14/23 07:19 O2 Del Method Nasal Cannula 11/13/23 20:00 O2 Flow Rate 2 11/13/23 19:02 11/13/23 11/14/23 11/14/23 22:59 06:59 14:59 Output Total 500 / 500 500 / 1000 Balance -500 / 750 -500 / 250 Weight last 48 hrs Weight 131.088 kg Physical Exam 2 Narrative: General exam is a white male Neck supple no lymphadenopathy thyromegaly Cardiovascular regular rate and rhythm without murmur Lungs crackles right lower lobe. No wheezing. Left is clear. Abdomen is soft nontender obese. No tenderness. No hepatomegaly. Extremities no cyanosis, or edema, cap refill brisk Data 11/14/23 04:28 11/14/23 04:28 Micro: Microbiology 11/13/23 11:14 Blood Culture - Preliminary Blood SPECIMEN COLLECTED 11/13/23 11:11 Blood Culture - Preliminary Blood SPECIMEN COLLECTED A&P Assessment and plan (1) Pneumonia: Patient presents with concern of right lower lobe pneumonia Blood cultures have been obtained Respiratory panel negative. Sputum culture and MRSA PCR pending Continue IV antibiotics consisting of Rocephin and azithromycin Wean oxygen as tolerated. Secondary to marked temperature elevation, no improvement overnight, no need for continuous oxygen changed to regular admission. (2) Hyponatremia: Patient's sodium slightly low BNP is elevated Potential of heart failure must be entertained considering right lower lobe infiltrate. Cannot completely rule out atypical edema. Echocardiogram demonstrated an EF of 60%, no overall concerns Troponin showed no significant change He received Lasix 20 mg IV on 11/12. Sodium is improved TSH and random cortisol not concerning (3) Elevated brain natriuretic peptide (BNP) level: See above Plan Other medical problems as outlined in past medical history Full code Lovenox will suffice for DVT prophylaxis Attestations 2 Medical Necessity Statement*: Needs continued hospital stay for IV antibiotics secondary to pneumonia this patient was still febrile and requiring oxygen Diagnoses Pneumonia J18.9 Hyponatremia E87.1 Elevated brain natriuretic peptide (BNP) level R79.89 Time Spent (min) 21
[2023-11-14] MEDS: azithromycin 500 MG in sodium chloride 0.9% 250 ML 250 MG IV (10:57)
[2023-11-14] MEDS: cefTRIAXone 1,000 mg SDV 1000 MG IVP (10:58)
[2023-11-14] MEDS: water for injection-sterile 10 ML (12:28)
[2023-11-14] MEDS: vancomycin 2,000 MG/400 ML PIGGYBACK 200 MG IV ×2 (12:37→23:00)
[2023-11-14] MEDS: atorvastatin 40 mg Tablet PO (17:17)
[2023-11-14] MEDS: enoxaparin 40 mg/0.4 mL Syringe SUBCUT (17:17)
[2023-11-14] MEDS: acetaminophen 325 mg Tablet 650 MG PO (21:23)
--- NOTE | 2023-11-14 22:58 | PC.NURSE ---
Unable to collect sputum, as patient states he is not producing sputum.
[2023-11-15 00:25] VITALS: BP 113/54; PULSE 50; RESP 17; TEMP 36.8; O2SAT 94
[2023-11-15 04:00] VITALS: BP 119/64; PULSE 50; RESP 20; TEMP 37; O2SAT 95
[2023-11-15 06:02] LABS: Basophils % 0.3 %; Eosinophils # 0.2 10^3/uL (0.0-0.8); Eosinophils % 3.5 %; Hematocrit 38.9 % (37-53); Lymphocytes # 0.9 10^3/uL (0.8-4.8); Lymphocytes % 14.4 %; Mean Corpuscular HGB Conc 32.9 g/dL (30-55); Mean Corpuscular Volume 91.1 fl (82-101); Mean Platelet Volume 9.4 fL (7.4-10.4); Monocytes # 0.8 10^3/uL (0.2-0.9); Monocytes % 12.9 %; Neutrophils # 4.43 10^3/uL (1.8-7.7); Nucleated Red Blood Cells % 0 %; Platelet Count 204 10^3/cmm (157-399); Red Blood Count 4.27 10^6/uL (3.85-5.65); Red Cell Distribution Width 14.5 % (12.1-15.1); White Blood Count 6.52 10^3/uL (3.29-11.43)
[2023-11-15 06:22] LABS: Alanine Aminotransferase 29 U/L (0-41); Albumin Level 3.3 g/dL (3.5-5.2); Alkaline Phosphatase 54 U/L (40-130); Anion Gap 17.2 (5-19); Aspartate Amino Transferase 34 U/L (0-40); Blood Urea Nitrogen 24 mg/dL (8-23); Calcium 8.9 mg/dL (8.5-10.5); Carbon Dioxide 24 mmol/L (22-29); Chloride 102 mmol/L (98-107); Creatinine Clr Calc Pharmacy 97.0706; Globulin 2.9 g/dL (1.3-4.6); Glucose 117 mg/dL (65-115); Osmolality Calculated 293 mOsm/kg (285-295); Potassium 4.2 mmol/L (3.5-5.1); Sodium 139 mmol/L (136-145); Total Bilirubin 0.3 mg/dL (0.15-1.2); Total Protein 6.2 g/dL (6.6-8.7)
[2023-11-15 07:43] VITALS: BP 127/71; PULSE 53; RESP 18; TEMP 36.6; O2SAT 97
[2023-11-15 08:35] VITALS: PULSE 59; O2SAT 95
[2023-11-15] MEDS: sertraline 100 mg Tablet 200 MG PO (08:51)
[2023-11-15] MEDS: aspirin 81 mg EC Tablet PO (08:51)
[2023-11-15] MEDS: levothyroxine 75 mcg Tablet PO (08:51)
[2023-11-15] MEDS: pantoprazole DR 40 mg Tablet PO (08:52)
[2023-11-15] MEDS: amlodipine 5 mg Tablet PO (08:52)
[2023-11-15] MEDS: lisinopril 20 mg Tablet PO (08:52)
--- NOTE | 2023-11-15 09:11 | P.DS_ITS ---
Discharge Providers Date of Admission: 11/13/23 15:02 Date of Discharge: November 15, 2023 Attending Provider at Admission: Khanh Capps MD Attending Provider at Discharge: Khanh Capps MD Primary Care Provider: Maia Pereira NP Diagnoses at Discharge Discharge Diagnosis (1) Pneumonia: Status: Acute (2) Hyponatremia: Status: Acute (3) Elevated brain natriuretic peptide (BNP) level: Status: Acute Reason for Visit Reason for Visit: possible sepsis Hospital Course Hospital Course Patient is a 73-year-old white male who presented to the hospital short of breath, with chills. After getting admitted to the hospital he was found to be febrile, and requiring 2 L of oxygen. He was diagnosed with a right lower lobe pneumonia on chest x-ray on admission. He received IV antibiotics consisting of Rocephin and azithromycin. While in the hospital he gradually improved. He was able to come off oxygen on 11/14. At that time his white blood cell count had returned to normal. He was 24 hours without a fever. It was thought he could be discharged home with outpatient follow-up. Sodium was low on admission which corrected by time of discharge. Chlorthalidone was discontinued. Blood culture / positive, with likely contaminant. Echo was done secondary to BNP being slightly elevated. This was largely normal. He was given opportunity ask questions, and agreed with the plan. Physical Exam Narrative: General exam no distress Neck is supple Cardiovascular regular rate and rhythm Lungs a few crackles right base Abdomen is soft nontender Extremities no cyanosis clubbing or edema Discharge Data Studies Completed and Pending Completed Studies During Hospitalization Category Date Time Status XR chest 1V portable [id number] Stat Exams 11/13/23 09:51 Completed CV. echo complete* [id number] Routine Ultrasound 11/13/23 13:32 Completed Pending at discharge Category Date Time Status Blood Culture Stat Lab 11/13/23 11:14 Results Blood Culture Stat Lab 11/14/23 12:38 Results MRSA [Methicillin Resistant S.aureu] Routine Lab 11/14/23 09:55 Received Sputum Culture and Gram Stain Routine Lab 11/13/23 16:44 Uncollected Radiology Impressions Chest X-Ray 11/13/23 09:51 IMPRESSION: Heterogeneous right lower lobe opacification may represent atelectasis, pneumonia or aspiration. Laboratory Results WBC 6.52 10^3/uL (3.29-11.43) 11/15/23 05:15 RBC 4.27 10^6/uL (3.85-5.65) 11/15/23 05:15 Hgb 12.80 g/dL (11.27-16.99) 11/15/23 05:15 Hct 38.9 % (37-53) 11/15/23 05:15 MCV 91.1 fl (82-101) 11/15/23 05:15 MCH 30.0 pg (27-33) 11/15/23 05:15 MCHC 32.9 g/dL (30-55) 11/15/23 05:15 RDW 14.5 % (12.1-15.1) 11/15/23 05:15 Plt Count 204 10^3/cmm (157-399) 11/15/23 05:15 MPV 9.4 fL (7.4-10.4) 11/15/23 05:15 Neut % (Auto) 68.0 % 11/15/23 05:15 Lymph % (Auto) 14.4 % 11/15/23 05:15 [place] % (Auto) 12.9 % 11/15/23 05:15 Eos % (Auto) 3.5 % 11/15/23 05:15 Baso % (Auto) 0.3 % 11/15/23 05:15 Neut # (Auto) 4.43 10^3/uL (1.8-7.7) 11/15/23 05:15 Lymph # (Auto) 0.9 10^3/uL (0.8-4.8) 11/15/23 05:15 [place] # (Auto) 0.8 10^3/uL (0.2-0.9) 11/15/23 05:15 Eos # (Auto) 0.2 10^3/uL (0.0-0.8) 11/15/23 05:15 Baso # (Auto) 0.0 10^3/uL (0.0-0.1) 11/15/23 05:15 Nucleated RBC % (auto) 0 % 11/15/23 05:15 Nucleated RBCs # 0.0 /100WBC 11/15/23 05:15 Sodium 139 mmol/L (136-145) 11/15/23 05:15 Potassium 4.2 mmol/L (3.5-5.1) 11/15/23 05:15 Chloride 102 mmol/L (98-107) 11/15/23 05:15 Carbon Dioxide 24 mmol/L (22-29) 11/15/23 05:15 Anion Gap 17.2 (5-19) 11/15/23 05:15 BUN 24 mg/dL (8-23) H 11/15/23 05:15 Creatinine 1.0 mg/dL (0.7-1.2) 11/15/23 05:15 GFR Calculation Not Reportable 11/15/23 05:15 Glucose 117 mg/dL (65-115) H 11/15/23 05:15 Calculated Osmolality 293 mOsm/kg (285-295) 11/15/23 05:15 Lactic Acid 0.9 mmol/L (0.5-2.2) 11/13/23 09:53 Calcium 8.9 mg/dL (8.5-10.5) 11/15/23 05:15 Magnesium 1.8 mg/dL (1.7-2.3) 11/14/23 04:28 Total Bilirubin 0.3 mg/dL (0.15-1.2) 11/15/23 05:15 AST 34 U/L (0-40) 11/15/23 05:15 ALT 29 U/L (0-41) 11/15/23 05:15 Alkaline Phosphatase 54 U/L (40-130) 11/15/23 05:15 Creatine Kinase 80 U/L (39-308) 11/13/23 09:53 Troponin T 5th Gen ng/L 17 ng/L (0-15) H 11/13/23 14:55 NT-Pro-B Natriuret Pep 942 pg/mL (0-125) H 11/13/23 09:53 Total Protein 6.2 g/dL (6.6-8.7) L 11/15/23 05:15 Albumin 3.3 g/dL (3.5-5.2) L 11/15/23 05:15 Globulin 2.9 g/dL (1.3-4.6) 11/15/23 05:15 Lipase 31 U/L (13-60) 11/13/23 09:53 TSH 5.58 uIU/mL (0.27-4.20) H 11/13/23 09:53 Random Cortisol 22.85 ug/dL (2.47-19.5) H 11/13/23 09:53 Urine Color Yellow (Yellow) 11/13/23 13:55 Urine Appearance Clear (CLEAR) 11/13/23 13:55 Urine pH 6 (5-7) 11/13/23 13:55 Ur Specific [place] 1.005 (1.005-1.030) 11/13/23 13:55 Urine Protein Trace (Negative) 11/13/23 13:55 Urine Glucose (UA) Norm (Normal) 11/13/23 13:55 Urine Ketones Negative (Negative) 11/13/23 13:55 Urine Blood Neg (Negative) 11/13/23 13:55 Urine Nitrate Negative (Negative) 11/13/23 13:55 Urine Bilirubin Neg (Negative) 11/13/23 13:55 Urine Urobilinogen 1 mg/dL (Negative) H 11/13/23 13:55 Ur Leukocyte Esterase Negative (Negative) 11/13/23 13:55 Urine RBC None /hpf (0-2) 11/13/23 13:55 Urine WBC None /hpf (0-5) 11/13/23 13:55 Ur Squamous Epith Cells None /hpf (0-5) 11/13/23 13:55 Amorphous Sediment Not Reportable 11/13/23 13:55 Urine Bacteria None /hpf (NONE) 11/13/23 13:55 Hyaline Casts 5-10 /lpf H 11/13/23 13:55 Adenovirus (PCR) Not detected (NOT DETECT) 11/13/23 12:18 C. pneumoniae DNA (PCR) Not detected (NOT DETECT) 11/13/23 12:18 Coronavirus 229E (PCR) Not detected (NOT DETECT) 11/13/23 12:18 Human Metapneumovir PCR Not detected (NOT DETECT) 11/13/23 12:18 Influenza A (H1) PCR Not detected (NOT DETECT) 11/13/23 12:18 Influ A (H1/09) PCR Not detected (NOT DETECT) 11/13/23 12:18 Influenza A (H3) PCR Not detected (NOT DETECT) 11/13/23 12:18 Influenza Type A (PCR) Not detected (NOT DETECT) 11/13/23 12:18 Influenza Type B (PCR) Not detected (NOT DETECT) 11/13/23 12:18 M. pneumoniae (PCR) Not detected (NOT DETECT) 11/13/23 12:18 Parainfluenza 1 (PCR) Not detected (NOT DETECT) 11/13/23 12:18 Parainfluenza 2 (PCR) Not detected (NOT DETECT) 11/13/23 12:18 Parainfluenza 3 (PCR) Not detected (NOT DETECT) 11/13/23 12:18 Parainfluenza 4 (PCR) Not detected (NOT DETECT) 11/13/23 12:18 RSV Type A (PCR) Not detected (NOT DETECT) 11/13/23 12:18 RSV Type B (PCR) Not detected (NOT DETECT) 11/13/23 12:18 Entero/Rhino (PCR) Not detected (NOT DETECT) 11/13/23 12:18 SARS-CoV-2 (PCR) Not detected (NOT DETECT) 11/13/23 12:18 Vitals Last Vital Signs Temp 97.9 F 11/15/23 07:43 Pulse 59 L 11/15/23 08:35 Resp 18 11/15/23 07:43 BP 127/71 11/15/23 07:43 Pulse Ox 95 11/15/23 08:35 O2 Del Method Room Air 11/15/23 08:35 O2 Flow Rate 2 11/14/23 21:23 Discharge Plan Discharge Patient Disposition: Home Condition: Stable Prescriptions: New levofloxacin 750 mg tablet 750 mg PO DAILY 7 Days Qty: 7 0RF Continued aspirin 81 mg tablet,delayed release (DR/EC) 81 mg PO DAILY levothyroxine 75 mcg capsule 75 mcg PO DAILY omeprazole 20 mg capsule,delayed release(DR/EC) 20 mg PO BID sertraline 100 mg tablet 200 mg PO DAILY diclofenac potassium 50 mg tablet 50 mg PO BID lisinopril 20 mg tablet 20 mg PO BID Qty: 180 2RF amlodipine 5 mg tablet 5 mg PO BID Qty: 180 3RF CoQ-10 100 mg Capsule 200 mg PO DAILY rosuvastatin 40 mg Tablet 40 mg PO QPM Discontinued chlorthalidone 25 mg tablet 25 mg PO DAILY Qty: 90 3RF Discharge Orders: Discharge Order (Routine); Ordered 11/15/23 Ordered By: Khanh Capps Referrals: Maia Pereira NP [Primary Care Provider] - 7-10 days Discharge Diet: Usual diet Discharge Activity: Increase activity as tolerated Patient Instructions: Opioid Safety Activity Restrictions/Additional Instructions: Take all medicine as prescribed Finish course of Levaquin as prescribed Return for any concerns Follow-up with your primary care provider in 1 week. Discharge Attestations Time Spent in Discharge Care*: greater than 30 min Quality Metrics Clinical Quality Measures [ No reported AMI, CVA or VTE this stay] Coding Level of Care Code Acute Code for [facility] Fwd Diagnoses Pneumonia J18.9 Hyponatremia E87.1 Elevated brain natriuretic peptide (BNP) level R79.89 Time Spent (min) 31
--- NOTE | 2023-11-15 09:44 | PC.CHAP ---
Pastoral Care Encounter/Spiritual Assessment Type of Contact [] Declined sap data analyst visit [] Patient/Family/Request visit [] Outpatient visit [] Follow-up visit [] Physician referral [] Code/Alert [x] Routine visit [] Staff referral [] Actively dying [] Patient sleeping [x] Family support [] [] Out of room [] Palliative care [] [] Receiving care in room [] Pre-surgical visit [] Trauma [] Long length of stay [] ICU visit [] Other: Relational/Emotional Strength [x] Patient feels connected with others/family/visitors/staff [] Distress [] Loneliness/isolation [] Abandonment Spirituality of Patient [x] Person of [place] [x] Attends Buddhist of their [place] [x] Believes in Prayer [x] Reads Bible or Islam materials [] There are Spiritual issues to be addressed Packing Supervisor Interventions [x] Prayer [x] Active listening [] Non-anxious presence [x] Spiritual/emotional support [] Crisis/trauma care [] Spiritual counseling [] Bereavement support [] Provided bereavement packet [] Provided Bible/devotional materials [] Provided toy/stuffed animal, coloring book to patient or family member [] Provided Communion [] Anointing/[place] [] Salvation [x] Completed spiritual assessment [] Other: Impact on Illness or Injury [] Angry [] Fearful [] Anxious [] Often cries [] Exhaustion [] Unable to work [] Unable to attend adventism [] Unable to walk/stand [] Unable to read [] Unable to drive [] Unable to eat/drink [] Unable to sleep [] Unable to be with family [] Patient intubated [] Other: Summary Time spent with patient 15 min
[2023-11-15 11:18] VITALS: PULSE 59; O2SAT 95
[2023-11-15 14:24] LABS: Methicillin-Resist S.aureu PCR NOT DETECTED (NOT DETECTED)
== END 2023-11-15 11:19 | disposition home or self-care (01) | DRG 194 ==
LOC: ER 14:02 → ER IP 17:01 → MEDSURG 11-14 11:07
PROVIDERS: Family Medicine; Admitting Provider Internal Medicine; Emergency Provider Internal Medicine; PCP Nurse Practitioner Family; Visit Provider Internal Medicine
DX: J18.9 Pneumonia, unspecified organism (principal); E87.1 Hypo-osmolality and hyponatremia; R79.89 Other specified abnormal findings of blood chemistry; N48.6 Induration penis plastica; N40.0 Benign prostatic hyperplasia without lower urinary tract symptoms; N52.9 Male erectile dysfunction, unspecified; G47.30 Sleep apnea, unspecified; F43.10 Post-traumatic stress disorder, unspecified; E03.9 Hypothyroidism, unspecified; E78.5 Hyperlipidemia, unspecified; G47.00 Insomnia, unspecified
CPT/HCPCS: 36415; 51798; 71045; 80053; 81001; 82533; 82550; 83605; 83690; 83735; 83880; 84443; 84484; 85025; 87040; 87077; 87150; 87186; 87205; 87486; 87581; 87633; 87641; 93005; 93306; 94660; 96365; 96367; 96372; 96375; 99291; J0456; J0696; J1650; J1940; J2405; J3372; J7030; J7050

== ENCOUNTER → 2024-01-03 12:25 | Outpatient (BNVA) | payer OTHER, SELFPAY | PROVIDERS: PCP Nurse Practitioner Family; Visit Provider Internal Medicine | DX: R06.00 Dyspnea, unspecified (principal); I10 Essential (primary) hypertension; E78.5 Hyperlipidemia, unspecified; G47.30 Sleep apnea, unspecified; N40.1 Benign prostatic hyperplasia with lower urinary tract symptoms; N13.8 Other obstructive and reflux uropathy; Z72.0 Tobacco use | CPT/HCPCS: 99213 ==

== ENCOUNTER → 2024-08-08 07:36 | Outpatient (BNVA) | payer OTHER, SELFPAY | PROVIDERS: PCP Nurse Practitioner Family; Visit Provider Nurse Practitioner Family | DX: L85.8 Other specified epidermal thickening (principal); D69.2 Other nonthrombocytopenic purpura; L81.4 Other melanin hyperpigmentation; L57.8 Other skin changes due to chronic exposure to nonionizing radiation; X32.XXXA Exposure to sunlight, initial encounter; L82.1 Other seborrheic keratosis; L57.0 Actinic keratosis | CPT/HCPCS: 17000; 99213 ==

== ENCOUNTER → 2025-02-04 07:47 | Outpatient (BNVA) | payer OTHER, SELFPAY | PROVIDERS: PCP Nurse Practitioner Family; Visit Provider Nurse Practitioner Family | DX: D69.2 Other nonthrombocytopenic purpura (principal); L57.8 Other skin changes due to chronic exposure to nonionizing radiation; X32.XXXA Exposure to sunlight, initial encounter; L81.4 Other melanin hyperpigmentation; L82.1 Other seborrheic keratosis; L82.0 Inflamed seborrheic keratosis; L29.89 Other pruritus; R20.8 Other disturbances of skin sensation; L53.8 Other specified erythematous conditions; L57.0 Actinic keratosis | CPT/HCPCS: 17000; 17110; 99213 ==

== ENCOUNTER 2025-03-06 12:39 | Emergency (ER) | payer OTHER, SELFPAY ==
[2025-03-06 12:40] VITALS: BP 192/107; PULSE 60; RESP 17; O2SAT 95; BMI 33.2
--- NOTE | 2025-03-06 12:45 | XRR_ITS ---
PROCEDURE INFORMATION: Exam: XR Left Hip Exam date and time: 03/06/2025 12:49 PM Age: 74 years old Clinical indication: Hip pain; Left hip; Prior surgery; Surgery date: 1-6 months; Surgery type: Lt. Hip; Additional info: S/P L inder nov 2024 p/w pain after fall TECHNIQUE: Imaging protocol: Radiologic exam of the left hip. Views: 2 or 3 views hip with pelvis when performed. COMPARISON: No relevant prior studies available. FINDINGS: Bones/joints: Bilateral total hip arthroplasties are noted. Minimally displaced fracture of the mid femoral shaft, best seen on the lateral view. No dislocation. Soft tissues: Unremarkable. XR/XR hip LT 2-3V wo/w pel* [id number] IMPRESSION: Minimally displaced left femoral shaft fracture partially imaged. Recommend dedicated femur radiographs for further evaluation.
--- NOTE | 2025-03-06 12:45 | XRR_ITS ---
PROCEDURE INFORMATION: Exam: XR Left Elbow Exam date and time: 03/06/2025 12:49 PM Age: 74 years old Clinical indication: Pain; Elbow; Left; Additional info: Pain S/P fall, laceration overlying olecranon TECHNIQUE: Imaging protocol: Radiologic exam of the left elbow. Views: 1 or 2 views. COMPARISON: No relevant prior studies available. FINDINGS: Bones/joints: No definite acute fracture. No dislocation. Enthesophyte along the olecranon. Soft tissues: Soft tissue swelling along the extensor surface of the elbow with overlying laceration. Tiny radiopaque densities overlying the soft tissues along the extensor surface of the elbow. XR/XR elbow LT 2V [id number] IMPRESSION: 1. No definite acute fracture. 2. Soft tissue swelling with laceration along the extensor surface of the elbow. Tiny radiopaque densities could represent foreign bodies. Correlate with clinical findings.
--- OUTSIDE RECORDS SUMMARY | 2025-03-06 12:45 | XMS_ITS | Clinical Summary ---
Author Organization [facility] Address [address] [place] [address] Phone Care Team Providers Care Forest Practices Field Coordinator Name Role Phone Unavailable Primary Care Provider Unavailabl e Allergies Active Allergy Reactions Criticality Noted Date Comments Rosuvastatin Muscle Pain Low 08/17/2022 Medications amLODIPine (NORVASC) 5 mg tablet Take 5 mg by mouth daily. Active chlorthalidone (HYGROTON) 25 mg tablet Take 25 mg by mouth daily. Active diclofenac sodium (VOLTAREN) 50 mg Tablet, Delayed Release (E.C.) Take 50 mg by mouth 2 times daily. prn Active levothyroxine 75 mcg tablet Take 75 mcg by mouth daily in the morning. Active lisinopriL (PRINIVIL) 20 mg tablet Take 20 mg by mouth 2 times daily. Active omeprazole (PriLOSEC) 20 mg Capsule, Delayed Release(E.C.) Take 20 mg by mouth daily. Active sertraline (ZOLOFT) 100 mg tablet Take 100 mg by mouth daily. Active aspirin (ECOTRIN EC) 81 mg Tablet, Delayed Release (E.C.) Take 81 mg by mouth daily. 03/29/2021 Active rosuvastatin (CRESTOR) 20 mg tablet Take 10 mg by mouth daily at bedtime. 02/03/2023 Active omega-3 fatty acids-fish oil 300-1,000 mg Capsule Take 1 Capsule by mouth daily. Active Active Problems No known active problems Family History Medical History Relation Name Comments Colon Cancer Neg Hx Social History Tobacco Use Types Packs/Day Years Used Date Smoking Tobacco: Never Smokeless Tobacco: Never Tobacco Cessation:Counseling Given: Not Answered Alcohol Use Standard Drinks/Week Comments Yes 10 (1 standard drink = 0.6 oz pu re alcohol) Whiskey, some beer Feeling Safe Answer Date Recorded Are you in a relationship wi th someone who hurts you emotionally and/or physically? 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 Gender Identity Not on file Sexual Orientation Not on file Last Filed Vital Signs Vital Sign Reading Time Taken Comments Blood Pressure 122/56 04/17/2023 9:56 AM STRAIGHT RULING MACHINE OPERATOR Pulse 61 04/17/2023 9:56 AM STRAIGHT RULING MACHINE OPERATOR Temperature 36.1 C (96.9 F) 04/17/2023 9:56 AM STRAIGHT RULING MACHINE OPERATOR Respiratory Rate 16 04/17/2023 9:56 AM STRAIGHT RULING MACHINE OPERATOR Oxygen Saturation 96% 04/17/2023 9:56 AM STRAIGHT RULING MACHINE OPERATOR Inhaled Oxygen Concentration - - Weight 133.4 kg (294 lb) 04/17/2023 9:15 AM STRAIGHT RULING MACHINE OPERATOR Height 195.6 cm (6' 5 ) 04/17/2023 9:15 AM STRAIGHT RULING MACHINE OPERATOR Body Mass Index 34.86 04/17/2023 9:15 AM STRAIGHT RULING MACHINE OPERATOR Plan of Treatment Health Maintenance Due Date Last Done Comments DIABETES ANNUAL FOOT EXAM 07/25/1967 DIABETES MICROALBUMIN ANNUAL SCREEN 07/25/1967 LDL CHOLESTEROL ANNUAL 07/25/1967 FIT-DNA Q 3 years 1994 FIT/FOBT Q 1 year 1994 Flex Sig/CT Colonography Q 5 years 1994 DIABETES ANNUAL RETINAL EXAM 03/28/2023 03/28/2022 DIABETES HBA1C Q 6 MONTHS 07/28/2023 01/27/2023 RSV VACCINE (60+ or ) (1 - 1-dose 75+ series) 2024 INFLUENZA VACCINE (#1) 2024 , 03/21/2022, 02/24/2021, Additional history exists DTAP/TDAP/TD VACCINES (3 - T d or Tdap) 03/30/2033 03/30/2023, 07/30/2013 COLORECTAL SCREENING 04/17/2033 04/17/2023 Colorectal Cancer Screening 04/17/2033 PNEUMOCOCCAL VACCINE 50+ YEARS Completed 05/25/2017 , 01/26/2015 ZOSTER VACCINE Completed 10/02/2019, 06/29, 03/17/2015 Medical Devices Implanted Type Area Speech And Hearing Clinic Director Device Identifier Shelf Expiration Date Model / Serial / Lot Plate Plate Right: Hip Insurance * Guarantor: [employer] Account Type Relation to Patient Date of Phone Billing Address Corporate Other DEFAULT ADDRESS [address] [employer] * Guarantor: [employer] (C) Account Type Relation to Patient Date of Phone Billing Address Corporate Other DEFAULT ADDRESS [address] [employer] [facility]ICE [facility] COMM[facility]
--- NOTE | 2025-03-06 13:03 | W.ED.EXTPRO ---
HPI - Extremity Problem General: Chief complaint: Extremity Injury, Lower Stated complaint: fall - left hip pain, left elbow lac History of Present Illness: 74-year-old male past medical history significant for hypertension, hypothyroidism, status post left hip replacement performed in November by Dr. Lux out of [place], presenting the emergency department after mechanical fall off his tractor sustaining severe pain to the left hip, also sustained a laceration to the left elbow, unsure of last tetanus, given Zofran and 175 mcg of fentanyl prior to arrival by EMS and still in pain on arrival, patient denies any head or neck trauma, denies loss of consciousness, denies right leg pain Related Data Home Medications ?Medication ?Instructions ?Recorded ?Confirmed aspirin 81 mg tablet,delayed 81 mg PO DAILY 01/22/20 03/06/25 release omeprazole 20 mg capsule,delayed 40 mg PO QAM 07/22/21 03/06/25 release sertraline 100 mg tablet 200 mg PO QAM 07/22/21 03/06/25 diclofenac potassium 50 mg tablet 50 mg PO BID PRN Pain 05/13/22 03/06/25 coenzyme Q10 100 mg capsule 200 mg PO DAILY 11/13/23 03/06/25 (CoQ-10) rosuvastatin 40 mg tablet 20 mg PO QPM 11/13/23 03/06/25 acetaminophen 500 mg tablet 100 mg PO TID PRN Pain 03/06/25 03/06/25 levothyroxine 75 mcg tablet 75 mcg PO QAM 03/06/25 03/06/25 lisinopril 40 mg tablet 20 mg PO BID 03/06/25 03/06/25 Allergies Allergy/AdvReac Type Severity Reaction Status Date / Time Myctytn-LUP-CaU Reductase Allergy Unknown Unknown Verified 01/03/24 12:33 Inhibitor [facility] ED PFS: Medical History (Updated 03/06/25 @ 14:08 by Leonardo Gonzalez MD) Insomnia Nummular eczema Seborrheic dermatitis Hyperlipidemia Hypertension Hypothyroidism PTSD (post-traumatic stress disorder) Sleep apnea Family history of prostate cancer Erectile dysfunction BPH with obstruction/lower urinary tract symptoms Peyronie's disease Surgical History History of right hip replacement Family History Father , at age 85 Cancer PROSTATE CANCER Mother No problems noted. 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 Physical Exam Narrative: EXAM NARRATIVE: Gen: A&Ox4, nontoxic-appearing, appears in acute distress secondary to pain HEENT: Normocephalic, atraumatic, no scleral icterus, external ears normal, moist mucous membranes, no periorbital ecchymosis, no Hayes sign, no scalp hematoma or laceration, no tenderness to palpation of the neck Neck: Supple, full range of motion, no observable masses Lungs: No Respiratory distress, Lungs clear to auscultation bilaterally no rales, rhonchi, wheezing CV: Regular rate and rhythm, no murmur, no pitting edema to lower extremities bilaterally Abdomen: Soft, nondistended, nontender to palpation MSK: Markedly diminished range of motion to the left lower extremity at the hip, no significant limb length discrepancy, no open wounds to left lower extremity, left lower extremity has intact pulses to PT and DP, left elbow with laceration overlying the olecranon with mild active bleeding, full range of motion to the elbow Skin: No rashes, petechiae, lesions. Normal color per patient. Neuro: Alert and oriented, no slurred speech, sensation and strength grossly intact all 4 extremities Psych: Appropriate for situation. Procedures Laceration Laceration 1: Site: upper extremity Side (If applicable): left Size (cm): 4 Description: linear Depth: simple, single layer Local Anesthetic: lidocaine 1% Amount of anesthesia used (mL): 3 Skin layer closed with: nylon Size (cm): 3-0 Number of sutures: 3 Technique: simple, interrupted Course Reevaluation(s): Reevaluation #1: Patient now excepted by Ortho trauma as well, they are requesting knee immobilizer placed prior to transfer, will give additional dose of IV fentanyl and attempt to a place knee immobilizer if patient tolerates prior to transfer. Stable for transfer Time: 15:20 Consultations: Consultation #1: I discussed case with [facility] transfer center and ER physician at [facility] Dr. Cisneros, he is willing to accept patient but only after I speak with orthopedic trauma surgery to ensure that fracture can be managed at that facility. Transfer center is aware of this request and is currently in the process of getting them to call me Time: 13:45 Vital Signs: Vital signs: Vital Signs Pulse Rate 67 03/06/25 14:54 Respiratory Rate 17 03/06/25 14:54 Blood Pressure 150/97 03/06/25 14:54 Pulse Oximetry 95 03/06/25 14:54 Oxygen Delivery Me thod Room Air 03/06/25 14:54 MDM - Extremity (Nontraumatic) Medical Decision Making 74-year-old male status post total hip arthroplasty on the left approximately 2 to 3 months ago in [place] with Dr. Lux presenting the emergency department with mechanical fall with severe left hip/left lower extremity pain, initial x-rays suggestive of spiral fracture of the femur distal to the intact hardware with no dislocation of the hip joint, patient prefers to be managed at [facility] where his recent surgery was performed, will reach out to their transfer center to hopefully arrange transfer there for definitive management. Tetanus for open laceration to the elbow and laceration repair in ED prior to transfer Lab Data Radiology Impressions Elbow X-Ray 03/06/25 12:45 IMPRESSION: 1. No definite acute fracture. 2. Soft tissue swelling with laceration along the extensor surface of the elbow. Tiny radiopaque densities could represent foreign bodies. Correlate with clinical findings. Hip/Pelvis X-Ray 03/06/25 12:45 IMPRESSION: Minimally displaced left femoral shaft fracture partially imaged. Recommend dedicated femur radiographs for further evaluation. Femur X-Ray 03/06/25 13:05 IMPRESSION: Mildly displaced oblique fracture involving the midshaft of the left femur. Status post prior left total hip arthroplasty. Prosthesis appears intact and normally aligned. Chest X-Ray 03/06/25 13:08 IMPRESSION: Apparent cardiomegaly and slight widened appearance of the mediastinum likely is partially secondary to the AP projection and low lung volumes. There are otherwise no acute findings. All radiology interpretation(s) finalized by discharge ED provider radiology interpretation(s): X-ray left hip and femur showing an oblique spiral fracture of the midshaft of the left femur with intact prosthesis of the left hip arthroplasty, left elbow no fracture possible foreign bodies Discharge Plan Discharge Patient Disposition: Xfer Short-Term Hosp Clinical Impression: Fracture of femur Qualifiers: Encounter type: initial encounter Femur location: shaft Fracture type: closed Fracture morphology: spiral Fracture alignment: displaced Laterality: left Qualified Code(s): S72.342A - Displaced spiral fracture of shaft of left femur, initial encounter for closed fracture Condition: Stable Referrals: Maia Pereira NP [Primary Care Provider, Unknown] Print Language: Georgian Coding Level of Care Code ED Charge Machine Operator for Jonnathan Rodriguez
--- NOTE | 2025-03-06 13:05 | XRR_ITS ---
PROCEDURE INFORMATION: Exam: XR Left Femur Exam date and time: 03/06/2025 1:27 PM Age: 74 years old Clinical indication: Injury or trauma; Fall; Fracture, traumatic; Closed fracture and displaced; Left; Shaft of the femur; Exam post abnormal hip x-ray to determine extent of FX; Additional info: Femur FX S/P fall TECHNIQUE: Imaging protocol: Radiologic exam of the left femur. Views: 2 views. COMPARISON: CR (PELVIS, ) 03/06/2025 12:49 PM FINDINGS: Bones/joints: Mildly displaced oblique fracture involving the mid shaft of the left femur. Status post prior left total hip arthroplasty. Prosthesis appears intact and normally aligned. Fracture line does not definitively extend to the margin of the prosthesis. Soft tissues: Subtle increased density within the soft tissues along the margin of the fracture may correspond to a small associated hematoma or artifact. XR/XR femur LT min 2V* [id number] IMPRESSION: Mildly displaced oblique fracture involving the midshaft of the left femur. Status post prior left total hip arthroplasty. Prosthesis appears intact and normally aligned.
--- NOTE | 2025-03-06 13:08 | XRR_ITS ---
PROCEDURE INFORMATION: Exam: XR Chest Exam date and time: 03/06/2025 1:20 PM Age: 74 years old Clinical indication: Pre-operative exam; Respiratory screening exam; Additional info: Fall with lle trauma, pre-op TECHNIQUE: Imaging protocol: Radiologic exam of the chest. Views: 1 view. COMPARISON: CR XR chest 1V portable [id number] 11/13/2023 10:07 AM FINDINGS: Lungs: No focal dense airspace consolidation. No CHF. Pleural spaces: No large pleural effusion. Slight blunting of the right costophrenic angle more likely secondary to elevation of the right hemidiaphragm. No pneumothorax. Heart/Mediastinum: Cardiomegaly. Mediastinal contours are smooth. Widened appearance of the mediastinum may be secondary to the AP projection and slightly low lung volumes. Diaphragm: Slight elevation of the right hemidiaphragm. Bones/joints: Old healed rib fracture deformity involving the right 5th rib. Multilevel degenerative changes throughout the spine. XR/XR chest 1V portable [id number] IMPRESSION: Apparent cardiomegaly and slight widened appearance of the mediastinum likely is partially secondary to the AP projection and low lung volumes. There are otherwise no acute findings.
[2025-03-06] MEDS: HYDROmorphone 0.5 MG/0.5 ML INJ 1 MG IVP ×3 (13:10→16:26)
[2025-03-06] MEDS: tetanus-diphtheria tox (adult) 0.5 mL SYRINGE IM (13:11)
[2025-03-06] MEDS: lidocaine-epi 1% 20 mL INJ INJECTION (13:12)
[2025-03-06 13:38] VITALS: BP 184/96; PULSE 61; RESP 24; O2SAT 91
--- NOTE | 2025-03-06 14:23 | PC.PHAR ---
Pt is [facility] Bo verified all pts medications. Pt did take his am meds today.
[2025-03-06 14:28] VITALS: BP 159/100; PULSE 68; RESP 21; O2SAT 98
[2025-03-06 14:54] VITALS: BP 150/97; PULSE 67; RESP 17; O2SAT 95
--- NOTE | 2025-03-06 15:28 | PC.NURSE ---
report called to Dahlia Zayas RN at [facility]. report number .
[2025-03-06] MEDS: fentaNYL 50 mcg/mL INJ 2mL IVP (15:29)
--- NOTE | 2025-03-06 16:28 | PC.NURSE ---
pt's pain re-assessed after each dilaudid admin, states improves for awhile then startes to gradually get worse. pt given dilaudid prior to transport.
[2025-03-06 16:29] VITALS: BP 158/100; PULSE 75; O2SAT 96
--- NOTE | 2025-03-06 16:29 | PC.NURSE ---
report given to [facility] @[id number], no further questions.
== END 2025-03-06 16:36 | disposition short-term general hospital (02) ==
PROVIDERS: Emergency Provider Student in an Organized Health Care Education/Training Program; PCP Nurse Practitioner Family
DX: S72.342A Displaced spiral fracture of shaft of left femur, initial encounter for closed fracture (principal); E78.5 Hyperlipidemia, unspecified; I10 Essential (primary) hypertension; Z96.642 Presence of left artificial hip joint; W31.89XA Contact with other specified machinery, initial encounter
CPT/HCPCS: 12002; 36415; 51702; 71045; 73070; 73502; 73552; 90714; 96374; 96375; 96376; 99285; J1171; J3010; J9999